=== PATIENT | male | born 1990 | race Hispanic/Latino ===

== ENCOUNTER 2021-11-19 22:39 | Emergency (ER) | payer OTHER ==
[~2021-11-19] VITALS: Ht 177.8 cm; Wt 139.7 kg
[2021-11-19] MEDS ORDERED: NEOMYCIN/POLYMYXIN/HC OTIC SUSP 10ML BOTTLE AU SCH (23:00)
[2021-11-19] MEDS ORDERED: MECLIZINE HCL 25 MG TABLET PO ONE (23:00)
[2021-11-19] MEDS ORDERED: ACETAMINOPHEN WITH CODEINE 1 TAB TAB PO ONE (23:00)
[2021-11-19 23:01] VITALS: BP 147/78
[2021-11-19] MEDS ORDERED: IBUP-1552 PO (23:19)
== END 2021-11-19 23:24 | disposition home or self-care (01) ==
LOC: EDH 22:39
DX: H92.03 Otalgia, bilateral (principal); R42 Dizziness and giddiness; Z20.822 Contact with and (suspected) exposure to COVID-19; E66.9 Obesity, unspecified; Z68.41 Body mass index [BMI] 40.0-44.9, adult; Z79.1 Long term (current) use of non-steroidal anti-inflammatories (NSAID)
CPT/HCPCS: 87635; 99284; C9803